=== PATIENT | female | born 2000 | race Hispanic/Latino ===

== ENCOUNTER 2021-12-01 15:03 | Emergency (ER) | payer OTHER, MEDICAID, SELFPAY ==
[2021-12-01 15:10] VITALS: BP 124/58; PULSE 106; RESP 18; TEMP 37.4; O2SAT 98; BMI 25.7
--- NOTE | 2021-12-01 15:25 | DI.US.S_ITS ---
PROCEDURE: US OB <= 14 WEEKS FETUS INDICATIONS: SEVERE PAIN, SPOTTING OUTSIDE/PRIOR DATING DATA: Last menstrual period (LMP): Unknown. LMP-based estimated date of delivery (FAVIAN): A non. First dating scan (date and location): 12/01/2021. Estimated date of delivery (FAVIAN) from first dating scan: 07/09/2022. TECHNIQUE: Real-time scanning was performed of the fetus and maternal pelvic organs, with image documentation. Endovaginal scanning was also performed to better visualize the fetus and maternal ovaries. COMPARISON: None. FINDINGS: Embryo: [place]-rump length 2.0 cm corresponds with a 8 week 4 day gestation. Yolk sac noted. Heart rate: 189 beats per minute Maternal organs: Ovaries unremarkable.. IMPRESSION: Single live intrauterine corresponds with a 8 week 4 day gestation. heart rate 189 beats per minute. No subchorionic or implantation bleed Approved by: Jose C Raygoza M.D. on 12/01/2021 at 15:32
[2021-12-01] MEDS: SODIUM CHLORIDE 0.9% 1,000 ML 1000 ML IV (15:40)
[2021-12-01] MEDS: ONDANSETRON 4 MG/2 ML INJ IV (15:40)
[2021-12-01 16:16] LABS: Add Manual Diff / Slide Review NO; Basophils Absolute Auto 0 /uL (0-100); Basophils Percent Auto 0.4 % (0-2); Eosinophils Absolute Auto 0 /uL (0-450); Eosinophils Percent Auto 0.5 % (2-4); Hematocrit 37.2 % (36-46); Hemoglobin 12.3 g/dL (12.0-16.0); Lipase 61 U/L (23-300); Lymphocytes Absolute Auto 400 /uL (1100-4500); Lymphocytes Percent Auto 6.8 % (25-40); Mean Corpuscular HGB Conc 33.2 % (30-36); Mean Corpuscular Hemoglobin 27.2 PG (26-34); Mean Corpuscular Volume 81.9 fL (80-100); Monocytes Absolute Auto 500 /uL (0-900); Monocytes Percent Auto 7.2 % (3-14); Neutrophils Absolute Auto 5600 /uL (1500-7000); Neutrophils Percent Auto 85.1 % (50-75); Platelet Count 246 X10^3/uL (150-400); Red Blood Cell Count 4.54 X10^6/uL (4.0-5.2); Red Cell Distribution Width 14.8 % (11.6-14.8); White Blood Cell Count 6.5 X10^3/uL (4.5-11.0)
--- NOTE | 2021-12-01 16:16 | ED.GENADULT ---
HPI - General Adult General Chief complaint: Abdominal Pain Stated complaint: abd, back pain Time Seen by Provider: 12/01/21 16:16 Source: patient Mode of arrival: Ambulatory Related Data Allergies Allergy/AdvReac Type Severity Reaction Status Date / Time amoxicillin Allergy Verified 12/01/21 15:09 Penicillins Allergy Verified 12/01/21 15:09 Patient History Social History Smoking Status: Never smoker Smoking Status: Never smoker Substance Use Type: does not use Exam Initial Vital Signs Initial Vital Signs: Vital Signs Temperature 99.4 F 12/01/21 15:10 Pulse Rate 106 H 12/01/21 15:10 Respiratory Rate 18 12/01/21 15:10 Blood Pressure 124/58 L 12/01/21 15:10 Pulse Oximetry 98 12/01/21 15:10 Course Orders Ordered: ED Orders 12/01/21 15:25 US OB <= 14 weeks fetus Stat 12/01/21 15:35 ABO RH Type Stat Complete Blood Count AUTO DIFF Stat Comprehensive Metabolic Panel Stat HCG Quantitative /Beta subunit Stat Lipase Stat Discontinued Medications Sodium Chloride (Normal Saline 0.9%) 1,000 mls @ 1,000 mls/hr IV BOLUS ONE Stop: 12/01/21 16:14 Last Admin: 12/01/21 15:40 Dose: 1,000 mls/hr Documented by: CLAIRE Ondansetron HCl (Ondansetron 4 Mg/2 Ml Inj) 4 mg IV NOW ONE Stop: 12/01/21 15:33 Last Admin: 12/01/21 15:40 Dose: 4 mg Documented by: CLAIRE Vital Signs Vital signs: Vital Signs - 8 hr 12/01/21 15:10 Temperature 99.4 F Pulse Rate 106 H Respiratory Rate 18 Blood Pressure 124/58 L Pulse Oximetry 98 Medical Decision Making Lab Data Result diagrams: 12/01/21 15:35 12/01/21 15:35 Imaging Data US pelvis: Radiologist's Impression: Tech: viable IUP. No torsion. No obvious bleeding or free fluid
[2021-12-01 16:17] LABS: Alanine Aminotransferase 12 IU/L (<35); Albumin 4.1 g/dL (3.5-5.0); Albumin Globulin Ratio 1.4 (1.0-2.8); Alkaline Phosphatase 52 U/L (38-126); Aspartate Aminotransferase 19 IU/L (14-36); BUN Creatinine Ratio 6.5 (6-22); Bilirubin Total 0.4 mg/dL (0.2-1.3); Blood Urea Nitrogen 3 mg/dL (7-17); Calcium 9.9 mg/dL (8.4-10.2); Carbon Dioxide 22 mmol/L (22-32); Chloride 104 mmol/L (98-107); Estimated Glomerular Filt Rate > 60.0 mL/min (>60); Glucose 88 mg/dL (70-100); HEMOLYSIS < 15 (0-50); Potassium 3.9 mmol/L (3.4-5.1); Sodium 135 mmol/L (137-145); Total Protein 7.1 g/dL (6.3-8.2)
[2021-12-01 16:57] LABS: HCG Quantitative /Beta subunit 135650 mIU/mL
[2021-12-01] MEDS: ACETAMINOPHEN 325 MG TABLET 650 MG PO (17:45)
[2021-12-01 18:42] LABS: RBC Urine 0-1/HPF (0-5/HPF); WBC Urine 1-5/HPF (0-5/HPF)
[2021-12-01 18:43] LABS: Bacteria Urine Moderate (10-30); Culture Indicated Urine Cult Not Indicated; Squamous Epithelial Cell Urine 10-30 /HPF (0-5/HPF)
--- NOTE | 2021-12-01 18:43 | ED_ITS ---
HPI - Abdominal Pain General Chief Complaint: Abdominal Pain Stated Complaint: abd, back pain Time Seen by Provider: 12/01/21 18:42 Source: patient Mode of arrival: Ambulatory History of Present Illness HPI narrative: Patient is a 21-year-old female presenting with abdominal pain she says it was all over her lower abdomen started last night. While in the ED she developed pain in her back she says it feels like his belt of pain. She has some radiation down to go size but stops. She has no numbness or tingling down her legs. She denies any nausea or vomiting. She has not had any vaginal bleeding. She has not yet established care for this . She started taking prenatals last week. She denies any fever or chills. Related Data Allergies Allergy/AdvReac Type Severity Reaction Status Date / Time amoxicillin Allergy Verified 12/01/21 15:09 Penicillins Allergy Verified 12/01/21 15:09 Review of Systems Review of Systems Narrative: GENERAL: Denies chills, fatigue, malaise, fever, sweats, travel HEENT: Denies sinus pain, ear pain, sore throat, difficulty swallowing, neck pain RESPIRATORY: Denies dyspnea, cough, wheezing, hemoptysis, sputum. CARDIOVASCULAR: Denies chest pain, palpitations, orthopnea, edema GASTROINTESTINAL: See HPI : Denies dysuria, frequency, incontinence, hematuria, urinary retention, flank pain. MUSCULOSKELETAL: Denies weakness, joint pain, or bony pain SKIN: No rash, no erythema, no pruritus NEUROLOGIC: Denies weakness, dizziness, headache, numbness, change in speech, confusion PSYCHIATRIC: No concerning psychosocial issues. 12 point review of systems is negative except for those stated above and HPI Patient History Social History Smoking Status: Never smoker Smoking Status: Never smoker Substance Use Type: does not use Exam Initial Vital Signs Initial Vital Signs: Vital Signs Temperature 99.4 F 12/01/21 15:10 Pulse Rate 106 H 12/01/21 15:10 Respiratory Rate 18 12/01/21 15:10 Blood Pressure 124/58 L 12/01/21 15:10 Pulse Oximetry 98 12/01/21 15:10 GENERAL: Well-appearing, well-nourished and in no acute distress. HEENT: Head atraumatic,EOMI, pupils reactive, face symmetric, moist mucous membranes CARDIOVASCULAR: Regular rate and rhythm without murmurs, rubs or gallops. RESPIRATORY: Breath sounds equal bilaterally, no wheezes rales or rhonchi. ABDOMEN: Soft, nontender. Normoactive bowel sounds all 4 quadrants. No guarding or rebound. BACK: No vertebral tenderness no step-off minimal left lower lumbar pain and spare paraspinal region : No CVA tenderness EXTREMITIES: Normal range of motion, no clubbing or edema. Neurovascularly intact NEUROLOGICAL: Alert and oriented x4.Normal gait and speech. SKIN: Warm, dry, no laceration, no petechiae, no rashes or lesions. Course Orders Ordered: ED Orders 12/01/21 18:00 Urine Microscopic Stat Discontinued Medications Acetaminophen (Acetaminophen 325 Mg Tablet) 650 mg PO NOW ONE Stop: 12/01/21 16:37 Last Admin: 12/01/21 17:45 Dose: 650 mg Documented by: ATAYLHECTOR Sodium Chloride (Normal Saline 0.9%) 1,000 mls @ 1,000 mls/hr IV BOLUS ONE Stop: 12/01/21 16:14 Last Infusion: 12/01/21 17:31 Dose: 0 mls/hr Documented by: Admin: 12/01/21 15:40 Dose: 1,000 mls/hr Documented by: CLAIRE Ondansetron HCl (Ondansetron 4 Mg/2 Ml Inj) 4 mg IV NOW ONE Stop: 12/01/21 15:33 Last Admin: 12/01/21 15:40 Dose: 4 mg Documented by: CLAIRE Vital Signs Vital signs: Vital Signs - 8 hr 12/01/21 18:59 Pulse Rate 99 H Respiratory Rate 16 Blood Pressure 98/52 L Pulse Oximetry 99 MDM - Abdominal Pain Lab Data Result diagrams: 12/01/21 15:35 12/01/21 15:35 Labs: Lab Results 12/01/21 12/01/21 12/01/21 Range/Units 15:35 15:35 15:35 WBC 6.5 (4.5-11.0) X10^3/uL RBC 4.54 (4.0-5.2) X10^6/uL Hgb 12.3 (12.0-16.0) g/dL Hct 37.2 (36-46) % MCV 81.9 (80-100) fL MCH 27.2 (26-34) PG MCHC 33.2 (30-36) % RDW 14.8 (11.6-14.8) % Plt Count 246 (150-400) X10^3/uL Neut % (Auto) 85.1 H (50-75) % Lymph % (Auto) 6.8 L (25-40) % [place] % (Auto) 7.2 (3-14) % Eos % (Auto) 0.5 L (2-4) % Baso % (Auto) 0.4 (0-2) % Neut # (Auto) 5600 (4677-9274) /uL Lymph # (Auto) 400 L (6603-9050) /uL [place] # (Auto) 500 (0-900) /uL Eos # (Auto) 0 (0-450) /uL Baso # (Auto) 0 (0-100) /uL Sodium 135 L (137-145) mmol/L Potassium 3.9 (3.4-5.1) mmol/L Chloride 104 (98-107) mmol/L Carbon Dioxide 22 (22-32) mmol/L BUN 3 L (7-17) mg/dL Creatinine 0.46 L (0.52-1.04) mg/dL Estimated GFR > 60.0 (>60) mL/min BUN/Creatinine Ratio 6.5 (6-22) Glucose 88 (70-100) mg/dL Calcium 9.9 (8.4-10.2) mg/dL Total Bilirubin 0.4 (0.2-1.3) mg/dL AST 19 (14-36) IU/L ALT 12 (<35) IU/L Alkaline Phosphatase 52 (38-126) U/L Total Protein 7.1 (6.3-8.2) g/dL Albumin 4.1 (3.5-5.0) g/dL Globulin 3.0 (1.7-4.1) g/dL Albumin/Globulin Ratio 1.4 (1.0-2.8) Lipase (23-300) U/L HCG, Quant [id number] mIU/mL Urine RBC (0-5/HPF) Urine WBC (0-5/HPF) Ur Squamous Epith Cells (0-5/HPF) Urine Bacteria (None) Ur Culture Indicated? Blood Type O Positive 12/01/21 12/01/21 Range/Units 15:35 18:00 WBC (4.5-11.0) X10^3/uL RBC (4.0-5.2) X10^6/uL Hgb (12.0-16.0) g/dL Hct (36-46) % MCV (80-100) fL MCH (26-34) PG MCHC (30-36) % RDW (11.6-14.8) % Plt Count (150-400) X10^3/uL Neut % (Auto) (50-75) % Lymph % (Auto) (25-40) % [place] % (Auto) (3-14) % Eos % (Auto) (2-4) % Baso % (Auto) (0-2) % Neut # (Auto) (4318-9504) /uL Lymph # (Auto) (1669-2853) /uL [place] # (Auto) (0-900) /uL Eos # (Auto) (0-450) /uL Baso # (Auto) (0-100) /uL Sodium (137-145) mmol/L Potassium (3.4-5.1) mmol/L Chloride (98-107) mmol/L Carbon Dioxide (22-32) mmol/L BUN (7-17) mg/dL Creatinine (0.52-1.04) mg/dL Estimated GFR (>60) mL/min BUN/Creatinine Ratio (6-22) Glucose (70-100) mg/dL Calcium (8.4-10.2) mg/dL Total Bilirubin (0.2-1.3) mg/dL AST (14-36) IU/L ALT (<35) IU/L Alkaline Phosphatase (38-126) U/L Total Protein (6.3-8.2) g/dL Albumin (3.5-5.0) g/dL Globulin (1.7-4.1) g/dL Albumin/Globulin Ratio (1.0-2.8) Lipase 61 (23-300) U/L HCG, Quant mIU/mL Urine RBC 0-1/hpf (0-5/HPF) Urine WBC 1-5/hpf (0-5/HPF) Ur Squamous Epith Cells 10-30 /hpf H (0-5/HPF) Urine Bacteria Moderate (10-30) H (None) Ur Culture Indicated? Cult not indicated Blood Type Point of care testing: Urine Dip Bedside Urine Glucose Negative Bedside Urine Bilirubin - Negative Bedside Urine Ketone +/- 5 Urine Specific [place] 1.025 Bedside Urine Occult Blood +/- Bedside Urine pH 6.0 Bedside Urine Protein - Negative Bedside Urine Urobilinogen - Negative Bedside Urine Nitrite - Negative Bedside Urine Leukocytes - Negative Esterase Imaging Data US - OB: Radiologist's Impression: PROCEDURE:? US OB <= 14 WEEKS FETUS ? INDICATIONS:? SEVERE PAIN, SPOTTING ? OUTSIDE/PRIOR DATING DATA:? Last menstrual period (LMP):? Unknown.? LMP-based estimated date of delivery (FAVIAN):? A non.? First dating scan (date and location):? 12/01/2021.? Estimated date of delivery (FAVIAN) from first dating scan:? 07/09/2022. ? TECHNIQUE:? Real-time scanning was performed of the fetus and maternal pelvic organs, with image documentation.? Endovaginal scanning was also performed to better visualize the fetus and maternal ovaries.? ? COMPARISON:? None. ? FINDINGS:? ? Embryo:? [place]-rump length 2.0 cm corresponds with a 8 week 4 day gestation.? Yolk sac noted. Heart rate:? 189 beats per minute Maternal organs:? Ovaries unremarkable.. ? ? IMPRESSION:? ? Single live intrauterine corresponds with a 8 week 4 day gestation. heart rate 189 beats per minute. No subchorionic or implantation bleed ? ? ? Approved by: Jose C Raygoza M.D. on 12/01/2021 at 15:32? [facility] Narrative Medical decision making narrative: Patient is feeling significantly better after fluids and Tylenol. She has no va ginal bleeding. Ultrasound is overall reassuring at this time recommend Tylenol probably muscle spasm. No evidence of UTI at this time. Recommend patient will. Discharge Plan Departure Patient Disposition: Home Clinical Impression: Muscle spasm Instructions: DI for Muscle Spasm Activity Restrictions/Additional Instructions: *You have been diagnosed with probable muscle spasm *What to do: At this time no evidence of infection. He says probably muscle spasm in her back. Recommend light stretching very low heating pad for no longer than 15 minutes, do not put it on her abdomen. *Continue to take medications as directed Tylenol 1000 mg every 6 hours if needed for [id number] *Follow up with your primary care provider in 2-3 days or call [phone] *Return to ER if you should have increasing pain, vaginal bleeding persistent vomiting or any new, worsening or concerning symptoms Referrals: Raquel Anaya MD [Physician] - Lor Kearns MD [Physician] - Melvina Pak MD [Physician] - Tosha Castillo MD [Physician] - Quintin Dow MD [Physician] -
[2021-12-01 18:59] VITALS: BP 98/52; PULSE 99; RESP 16; O2SAT 99
== END 2021-12-01 19:23 | disposition home or self-care (01) ==
PROVIDERS: Emergency Medicine; Emergency Provider Emergency Medicine
DX: O26.891 Other specified pregnancy related conditions, first trimester (principal); M62.838 Other muscle spasm; Z3A.08 8 weeks gestation of pregnancy
CPT/HCPCS: 36415; 76801; 76817; 80053; 81003; 81015; 83690; 84702; 85025; 86900; 86901; 96361; 96374; 99284; J2405